=== PATIENT | female | born 1980 | race Caucasian/White ===

== ENCOUNTER 2016-07-25 17:01 | Emergency (ER) | payer MEDICAID, OTHER ==
[~2016-07-25] VITALS: Ht 152.4 cm; Wt 65.0 kg
[2016-07-25 17:11] VITALS: Ht 152.4 cm; Wt 65.0 kg
--- NOTE | 2016-07-25 19:12 | ERD ---
ER Documentation Chief Complaint Date/Time DATE: 07/25/16 TIME: 19:10 Chief Complaint 9 WEEKS , VAGINAL BLEEDING, SENT BY PCP FOR US HPI 35 year old female here with who is A2 who is approximately 9 weeks with a last normal menstrual period sometime in May presents to the ED for mild vaginal bleeding 2 days. She states that she went to her OB doctor at the [facility] who sent her here for ultrasound. She states that she had bleeding that started yesterday however the bleeding has improved today. She denies pelvic pain. She denies fever or chills. Denies vomiting or diarrhea or abdominal pain. No other complaints. Denies leg pain or leg swelling. Denies chest pain or cough or shortness of breath difficulty breathing. Denies headache or dizziness. ROS All systems reviewed and are negative except as per history of present illness. Allergies Allergies: Coded Allergies: No Known Allergy (Verified , 07/25/16) PMhx/Soc Medical and Surgical Hx: pt denies Medical Hx History of Surgery: Yes (C SECTION 2X) Anesthesia Reaction: No Hx Neurological Disorder: No Hx Respiratory Disorders: No Hx Cardiac Disorders: No Hx Psychiatric Problems: No Hx Miscellaneous Medical Probl: No Hx Alcohol Use: No Hx Substance Use: No Hx Tobacco Use: No Smoking Status: Never smoker FmHx Family History: No coronary disease, No diabetes, No other Physical Exam Vitals Vital Signs Date Time Temp Pulse Resp B/P Pulse Ox O2 Delivery O2 Flow Rate FiO2 07/25/16 17:11 99.1 87 16 136/78 98 Physical Exam GENERAL: Well-developed, well-nourished female. Appears in no acute distress. HEAD: Normocephalic, atraumatic. EYES: Pupils are equally reactive bilaterally. EOMs grossly intact. No conjunctival erythema. ENT: Moist mucous membranes. No uvula deviation. No kissing tonsils. No exudates. NECK: Supple. No lymphadenopathy or thyromegaly. No meningismus. negative kernig. negative brudinski. LUNG: Clear to auscultation bilaterally. No rhonchi, wheezing, rales or coarse breath sounds. HEART: Regular rate and rhythm. No murmurs, rubs or gallops. Extremities: Equal pulses bilaterally. No peripheral clubbing, cyanosis or edema. No unilateral leg swelling. NEUROLOGIC: Alert and oriented. Moving all four extremities. 5/5 strength in all extremities. Normal speech. Steady gait. SKIN: Normal color. Warm and dry. No rashes or lesions. Capillary refill < 2 seconds Result Diagram: 07/25/161919 Results 24 hrs Laboratory Tests Test 07/25/16 18:47 07/25/16 19:20 Urine Color SLIGHTLY PINK Urine Clarity HAZY Urine pH 5.0 Urine Specific [place] 1.010 Urine Ketones 1+ Urine Nitrite NEGATIVE Urine Bilirubin NEGATIVE Urine Urobilinogen 0.2 E.U./dL Urine Leukocyte Esterase NEGATIVE Urine Microscopic RBC 2-5/HPF Urine Microscopic WBC 5-10/HPF Urine Squamous Epithelial Cells MANY Urine Bacteria FEW Urine Hemoglobin 3+ Urine Glucose NEGATIVE% Urine Total Protein TRACE White Blood Count 9.310^3/ul Red Blood Count 4.7610^6/ul Hemoglobin 14.2g/dl Hematocrit 40.7% Mean Corpuscular Volume 85.5fl Mean Corpuscular Hemoglobin 29.8pg Mean Corpuscular Hemoglobin Concent 34.9g/dl Red Cell Distribution Width 12.1% Platelet Count 44412^3/UL Mean Platelet Volume 9.5fl Neutrophils % 67.5% Lymphocytes % 25.8% Monocytes % 4.4% Eosinophils % 1.7% Basophils % 0.2% Nucleated Red Blood Cells % 0.0/100WBC Neutrophils # 6.310^3/ul Lymphocytes # 2.410^3/ul Monocytes # 0.410^3/ul Eosinophils # 0.210^3/ul Basophils # 0.010^3/ul Nucleated Red Blood Cells # 0.010^3/ul Beta HCG, Quantitative 45284.0mIU/ml Procedures/MDM ER COURSE: I kept the patient and/or family informed of laboratory and diagnostic imaging results throughout the emergency room course. IMAGING STUDIES [place] [address] Radiology Main Line: [phone] DIAGNOSTIC IMAGING REPORT Patient: JARAD ELLSWORTH : 1980 Age: 35 Sex: F MR #: [id number] DOS: 07/25/16 1847 Ordering MD: ARNAUD SWEENEY PA-C Location: FTE Room/Bed: PROCEDURE: OBSTETRICAL ULTRASOUND WITH ENDOVAGINAL IMAGES CLINICAL INDICATION: Vaginal Bleed () TECHNIQUE: Multiple sonographic images of the pelvis were obtained utilizing a transabdominal and endovaginal technique. The images were reviewed on a PACS workstation. COMPARISON: None. LMP: 05/24/2016 Gestational age by LMP: 8 weeks, 6 days FINDINGS: The uterus measures 10.5 x 4.6 x 6.0 cm. A possible intrauterine gestational sac is identified with mean sac diameter of 2.15 cm which would be consistent with a gestational age of 6 weeks, 6 days and an estimated date of delivery of 03/14/2017 . No yolk sac or pole is identified within it. The right ovary measures 2.8 x 2.1 x 2.8 cm. The left ovary measures 2.1 x 1.3 x 2.0 cm. There is normal vascular flow in both ovaries. No significant ovarian lesions are seen. No significant pelvic free fluid is identified. IMPRESSION: A possible intrauterine gestational sac is identified which would be consistent with a gestational age of 6 weeks, 6 days . No yolk sac or pole is identified within it. Findings may be due to an early intrauterine although an ectopic is not excluded. Short-term follow-up ultrasound and serial Beta HCG measurements are recommended for further evaluation. RPTAT: EE Physician Mignon Date Time Electronically viewed and signed by Physician Mignon on 07/25/2016 19:19 RA/ CC: ARNAUD SWEENEY PA-C LABORATORY STUDIES CBC within normal limits with no signs of anemia. Urinalysis is negative for nitrites, leukocytes or hematuria. RH O+ BH: 04551.00 MEDICAL DECISION MAKING: This is a 35 year old female who is who presents with vaginal bleeding. Vital signs were reviewed. Patient is afebrile. Patient is not hypoxic. Patient is nontoxic or ill-appearing. Her ultrasound revealed a possible intrauterine gestational sac is identified which would be consistent with a gestational age of 6 weeks, 6 days . No yolk sac or pole is identified within it. Findings may be due to an early intrauterine although an ectopic is not excluded. Short-term follow-up ultrasound and serial Beta HCG measurements are recommended for further evaluation. I consulted with the labor is business applications manager,Dr Almanzar where I reviewed her imaging studies and laboratory studies. Patient is stable for outpatient therapy and must return in 48 hours for recheck of beta hCG and ultrasound. Low suspicion for ectopic , , molar , endometriosis, PID, cervicitis, septic , molar , HELLP syndrome, preeclampsia, eclampsia, placenta previa, placenta abruptia. DISCHARGE: At this time, patient is stable for discharge and outpatient management with no new complaints during the ER course. Patient was sent home with copy of imaging and laboratory studies and to return in 2 days for recheck. Advised patient to not be alone at home and to have close follow-up. Patient will be discharged home with instructions to recheck for new or worsening symptoms such as fever, nausea, weakness, LOC and to follow up with primary care in the next 1-2 days. Patient was advised to return to the ER for any new or worsening symptoms. Plan was discussed and patient and/or family understands and agrees. Home instructions were given. Departure Diagnosis: Primary Impression: Vaginal bleeding in patient at less than 20 weeks gestation Condition: Stable ARNAUD SWEENEY PA-C Jul 25, 2016 19:12
--- NOTE | 2016-07-25 19:19 | RADRPT ---
PROCEDURE: OBSTETRICAL ULTRASOUND WITH ENDOVAGINAL IMAGES CLINICAL INDICATION: Vaginal Bleed () TECHNIQUE: Multiple sonographic images of the pelvis were obtained utilizing a transabdominal and endovaginal technique. The images were reviewed on a PACS workstation. COMPARISON: None. LMP: 05/24/2016 Gestational age by LMP: 8 weeks, 6 days FINDINGS: The uterus measures 10.5 x 4.6 x 6.0 cm. A possible intrauterine gestational sac is identified with mean sac diameter of 2.15 cm which would be consistent with a gestational age of 6 weeks, 6 days and an estimated date of delivery of 018 . No yolk sac or pole is identified within it. The right ovary measures 2.8 x 2.1 x 2.8 cm. The left ovary measures 2.1 x 1.3 x 2.0 cm. There is no rmal vascular flow in both ovaries. No significant ovarian lesions are seen. No significant pelvic free fluid is identified. IMPRESSION: A possible intrauterine gestational sac is identified which would be consistent with a gestational a ge of 6 weeks, 6 days . No yolk sac or pole is identified within it. Findings may be due to a n early intrauterine although an ectopic is not excluded. Short-term follow-up ultrasound and serial Beta HCG measurements are recommended for further evaluation. RPTAT: EE Physician Mignon Date Time Electronically viewed and signed by Physician Mignon on 07/25/2016 19:19 /
[2016-07-25 19:28] LABS: ADD SCAN DIFF NO
[2016-07-25 19:30] LABS: BASOPHILS % 0.2 % (0.0-2.0); EOSINOPHILS # 0.2 10^3/ul (0.0-0.5); EOSINOPHILS % 1.7 % (0.0-7.0); HEMATOCRIT 40.7 % (37.0-47.0); HEMOGLOBIN 14.2 g/dl (12.0-16.0); LYMPHOCYTES # 2.4 10^3/ul (0.8-2.9); LYMPHOCYTES % 25.8 % (15.0-51.0); MEAN CORPUSCULAR HEMOGLOBIN 29.8 pg (29.0-33.0); MEAN CORPUSCULAR HGB CONC 34.9 g/dl (32.0-37.0); MEAN CORPUSCULAR VOLUME 85.5 fl (82.0-101.0); MEAN PLATELET VOLUME 9.5 fl (7.4-10.4); MONOCYTE # 0.4 10^3/ul (0.3-0.9); MONOCYTES % 4.4 % (0.0-11.0); NEUTROPHIL # 6.3 10^3/ul (1.6-7.5); NEUTROPHILS % 67.5 % (39.0-77.0); PLATELET COUNT 229 10^3/UL (140-415); RED BLOOD COUNT 4.76 10^6/ul (4.20-5.40); RED CELL DISTRIBUTION WIDTH 12.1 % (11.5-14.5); WHITE BLOOD COUNT 9.3 10^3/ul (4.8-10.8)
[2016-07-25 20:19] LABS: UR CLARITY HAZY (CLEAR); UR COLOR SLIGHTLY PINK (YELLOW)
[2016-07-25 20:20] LABS: ADD UMIC YES; UR BILIRUBIN (Dip) NEGATIVE (NEGATIVE); UR BLOOD (Dip) 3+ (NEGATIVE); UR GLUCOSE (Dip) NEGATIVE (NEGATIVE); UR KETONES (Dip) 1+ (NEGATIVE); UR LEUKOCYTE ESTERASE (Dip) NEGATIVE (NEGATIVE); UR NITRITE (Dip) NEGATIVE (NEGATIVE); UR TOTAL PROTEIN (Dip) TRACE (NEGATIVE); UR UROBILINOGEN (Dip) 0.2 E.U./dL (0.1-1.0)
[2016-07-25 20:23] LABS: UR BACTERIA FEW; UR SQUAMOUS EPITHELIAL CELL MANY
[2016-07-25 21:05] VITALS: BP 118/70; PULSE 84; RESP 20
== END 2016-07-25 21:05 | disposition home or self-care (01) ==
LOC: FTE 17:01
DX: O20.9 Hemorrhage in early pregnancy, unspecified (principal); Z3A.01 Less than 8 weeks gestation of pregnancy
CPT/HCPCS: 36415; 76801; 81001; 84702; 85025; 86900; 86901; Z7502

== ENCOUNTER 2016-07-26 03:06 | Day surgery (SDC) | payer MEDICAID ==
[2016-07-26] VITALS (11 sets, daily range): BP systolic 105–130; BP diastolic 51–69; PULSE 106–120; RESP 16–26; TEMP 98.2; Ht 152.4 cm; Wt 64.5 kg
[~2016-07-26] VITALS: Ht 152.4 cm; Wt 64.5 kg
[2016-07-26] MEDS ORDERED: ONDANSETRON 4 MG INJ IV STA (03:34)
[2016-07-26] MEDS ORDERED: morphine 4 MG/ML VIAL IV STA (03:34)
[2016-07-26] MEDS ORDERED: SOD CHLORIDE 0.9% 1,000 ML IV STA (03:34)
[2016-07-26 03:57] LABS: ADD SCAN DIFF NO
[2016-07-26 04:05] LABS: BASOPHILS % 0.3 % (0.0-2.0); EOSINOPHILS # 0.2 10^3/ul (0.0-0.5); HEMATOCRIT 39.8 % (37.0-47.0); HEMOGLOBIN 13.9 g/dl (12.0-16.0); LYMPHOCYTES # 2.9 10^3/ul (0.8-2.9); LYMPHOCYTES % 28.3 % (15.0-51.0); MEAN CORPUSCULAR HEMOGLOBIN 29.6 pg (29.0-33.0); MEAN CORPUSCULAR HGB CONC 34.9 g/dl (32.0-37.0); MEAN CORPUSCULAR VOLUME 84.7 fl (82.0-101.0); MEAN PLATELET VOLUME 9.7 fl (7.4-10.4); MONOCYTE # 0.6 10^3/ul (0.3-0.9); MONOCYTES % 5.4 % (0.0-11.0); NEUTROPHIL # 6.6 10^3/ul (1.6-7.5); NEUTROPHILS % 63.8 % (39.0-77.0); PLATELET COUNT 225 10^3/UL (140-415); WHITE BLOOD COUNT 10.3 10^3/ul (4.8-10.8)
--- NOTE | 2016-07-26 04:22 | ERD ---
ER Documentation Chief Complaint Date/Time DATE: 07/26/16 TIME: 04:18 Chief Complaint pelvic pain, vaginal bleeding,difficulty urinating 8 wks HPI 35-year-old female presents to emergency department for complaints of worsening pelvic pain and vaginal bleeding, patient was seen earlier today for the same problem, had a full workup done, is supposed to be 8 weeks , was told to be six-week in the ultrasound. Patient is complaining of pelvic pain that was much worse, 9/10 scale, is worse upon movement accompanied with cramping. Patient also has worsening vaginal bleeding. Plan ROS All systems reviewed and are negative except as per history of present illness. Medications Home Meds Reported Medications [none] Unknown Strength No Conflict Check 07/26/16 Allergies Allergies: Coded Allergies: No Known Allergy (Verified , 07/25/16) PMhx/Soc History of Surgery: Yes (C SECTION 2X) Anesthesia Reaction: No Hx Neurological Disorder: No Hx Respiratory Disorders: No Hx Cardiac Disorders: No Hx Psychiatric Problems: No Hx Miscellaneous Medical Probl: No Hx Alcohol Use: No Hx Substance Use: No Hx Tobacco Use: No Smoking Status: Never smoker FmHx Family History: No coronary disease, No diabetes, No other Physical Exam Vitals Vital Signs Date Time Temp Pulse Resp B/P Pulse Ox O2 Delivery O2 Flow Rate FiO2 07/26/16 06:33 98.2 106 18 123/70 98 Room Air 07/26/16 03:15 98.3 94 20 130/70 100 Physical Exam GENERAL: The patient is well developed and appropriate for usual state of health, in no apparent distress. CHEST: Clear to auscultation bilaterally. There are no rales, wheezes or rhonchi. HEART: Regular rate and rhythm. No murmurs, clicks, rubs or gallops. No S3 or S4. ABDOMEN: Soft, lower abdominal tenderness noted. Good bowel sounds. No rebound or guarding. No gross peritonitis. No gross organomegaly or masses. No Livingston sign or McBurney point tenderness. BACK: No midline or flank tenderness. EXTREMITIES: Equal pulses bilaterally. There is no peripheral clubbing, cyanosis or edema. No focal swelling or erythema. Full range of motion. Grossly neurovascularly intact. NEURO: Alert and oriented. Cranial nerves 2-12 intact. Motor strength in all 4 extremities with 5/5 strength. Sensation grossly intact. Normal speech and gait. SKIN: There is no apparent rash or petechia. The skin is warm and dry. HEMATOLOGIC AND LYMPHATIC: There is no evidence of excessive bruising or lymphedema. No gross cervical, axillary, or inguinal lymphadenopathy. Result Diagram: 07/26/16 0614 Results 24 hrs Laboratory Tests Test 07/26/16 03:50 07/26/16 06:14 White Blood Count 10.310^3/ul 15.010^3/ul Red Blood Count 4.7010^6/ul 4.1610^6/ul Hemoglobin 13.9g/dl 12.4g/dl Hematocrit 39.8% 35.9% Mean Corpuscular Volume 84.7fl 86.3fl Mean Corpuscular Hemoglobin 29.6pg 29.8pg Mean Corpuscular Hemoglobin Concent 34.9g/dl 34.5g/dl Red Cell Distribution Width 12.0% 12.4% Platelet Count 02483^3/UL 49581^3/UL Mean Platelet Volume 9.7fl 9.4fl Neutrophils % 63.8% 87.7% Lymphocytes % 28.3% 8.1% Monocytes % 5.4% 3.5% Eosinophils % 2.0% 0.1% Basophils % 0.3% 0.1% Nucleated Red Blood Cells % 0.0/100WBC 0.0/100WBC Neutrophils # 6.610^3/ul 13.210^3/ul Lymphocytes # 2.910^3/ul 1.210^3/ul Monocytes # 0.610^3/ul 0.510^3/ul Eosinophils # 0.210^3/ul 0.010^3/ul Basophils # 0.010^3/ul 0.010^3/ul Nucleated Red Blood Cells # 0.010^3/ul 0.010^3/ul Beta HCG, Quantitative 9550.0mIU/ml Current Medications Medications (Trade) Dose Ordered Sig/Patrick Route PRN Reason Start Time Stop Time Status Last Admin Dose Admin Sodium Chloride (NS) 1,000 ml @ 1,000 mls/hr Q1H STAT IV 07/26/16 03:34 07/26/16 04:33 DC 07/26/16 03:50 Ondansetron HCl (Zofran Inj) 4 mg ONCE STAT IV 07/26/16 03:34 07/26/16 03:36 DC 07/26/16 03:50 Morphine Sulfate 4 mg 4 mg ONCE STAT IV 07/26/16 03:34 07/26/16 03:36 DC 07/26/16 03:50 Lactated Ringer's 1,000 ml @ 25 mls/hr Q24H IV 07/26/16 05:56 07/26/16 15:26 DC 07/26/16 06:39 Cefazolin Sodium/ Dextrose (Ancef 2 Gm/50 ml (Pmx)) 50 ml @ 100 mls/hr PRE-OP ONCE IVPB 07/26/16 06:00 07/26/16 06:29 DC 07/26/16 06:39 Hydromorphone HCl (Dilaudid) 1 mg ONCE STAT IV 07/26/16 06:35 07/26/16 06:36 DC 07/26/16 06:38 Patient was given medication for pain here in emergency department, after treatment, patient verbalized feeling much better. Patient's pain is improved. Morphine was given here in emergency department, patient was advised about risks if ever she is about the morphine, patient still wants the medication.Patient was given Zofran here in the emergency department. After treatment, patient was able to tolerate po fluids here in the emergency department without any vomiting. There is no signs and symptoms of dehydration. Normal saline IV bolus was given here in emergency department for rehydration, patient tolerated IV fluids. PROCEDURE: Obstetrical ultrasound. CLINICAL INDICATION: Vaginal bleeding. TECHNIQUE: Multiple sonographic images of the pelvis were obtained with transabdominal and endovaginal technique. Images were obtained with wisdom scale and color Doppler. COMPARISON: 07/25/2016. FINDINGS: The endometrium is thickened and heterogeneous measuring 2.1 cm. There is an intrauterine gestational sac with no pole or yolk sac identified. The mean sac diameter averages 2.14 cm, compatible with 6 weeks and 6 days gestation. No subchorionic collection is identified. There is no pelvic free fluid. The right ovary measures 2.7 x 1.6 x 2.0 cm and demonstrates normal flow. The left ovary is not visualized. There is no suspicious adnexal mass identified. IMPRESSION: Intrauterine gestational sac with no pole or yolk sac identified, compatible with 6 weeks and 6 days. Short-term follow-up ultrasound is recommended. Thickened and heterogeneous endometrium. Left ovary not visualized. .Marlo Ivan MD, MD Date Time Electronically viewed and signed by .Marlo Ivan MD, MD on 07/26/2016 05:12 .T/ CC: KRYSTINA DHALIWAL NP Procedures/MDM Medical Decision Making: Patients vaginal bleeding is most likely consistent of possible incomplete . Patient does not show any evidence of hypovolemic shock. Patients hemoglobin and hematocrit is stable. There is low suspicion for ectopic . GEOVANNY results show incomplete , a failed noted in the uterus BetaHCG Quantitative is consistent miscarriage The patient is Rh+, does not need RhoGAM this time. There is no signs of symptoms of dehydration. There is low suspicion for sepsis. Patient appears well and is hemodynamically stable. Ob Laborist Dr Polanco evaluated patient, will admit patient for possible dilatation and curettage. Stable at this time. Departure Diagnosis: Primary Impression: Pelvic pain complicating Additional Impression: Incomplete Condition: Fair KRYSTINA DHALIWAL NP Jul 26, 2016 04:22
[2016-07-26] MEDS ORDERED: LACTATED RINGER'S 1,000 ML IV SCH (05:56)
[2016-07-26] MEDS ORDERED: CEFAZOLIN 2 GM/50 ML (PMX) 50 ML IVPB ONE (06:00)
[2016-07-26 06:18] LABS: ADD SCAN DIFF NO
[2016-07-26 06:22] LABS: BASOPHILS % 0.1 % (0.0-2.0); EOSINOPHILS % 0.1 % (0.0-7.0); HEMATOCRIT 35.9 % (37.0-47.0); HEMOGLOBIN 12.4 g/dl (12.0-16.0); LYMPHOCYTES # 1.2 10^3/ul (0.8-2.9); LYMPHOCYTES % 8.1 % (15.0-51.0); MEAN CORPUSCULAR HEMOGLOBIN 29.8 pg (29.0-33.0); MEAN CORPUSCULAR HGB CONC 34.5 g/dl (32.0-37.0); MEAN CORPUSCULAR VOLUME 86.3 fl (82.0-101.0); MEAN PLATELET VOLUME 9.4 fl (7.4-10.4); MONOCYTE # 0.5 10^3/ul (0.3-0.9); MONOCYTES % 3.5 % (0.0-11.0); NEUTROPHIL # 13.2 10^3/ul (1.6-7.5); NEUTROPHILS % 87.7 % (39.0-77.0); PLATELET COUNT 176 10^3/UL (140-415); RED BLOOD COUNT 4.16 10^6/ul (4.20-5.40); RED CELL DISTRIBUTION WIDTH 12.4 % (11.5-14.5)
[2016-07-26] MEDS ORDERED: HYDROmorphONE 1 MG/ML SYG IV STA (06:35)
[2016-07-26] MEDS ORDERED: EPHEDrine SULFATE 50 MG/5 ML SYG ONE (07:00)
--- NOTE | 2016-07-26 07:16 | PREOPHP ---
DATE OF ADMISSION: 07/26/2016 CHIEF COMPLAINT: Severe pelvic pain with vaginal bleeding. HISTORY OF PRESENT ILLNESS: Yojana Larsen is a 35-year-old 3, para 2-0-0- 2, with LMP of 05/24/2016, complaining of severe pelvic pain and vaginal bleeding with clot passing. Evaluation in ER: LABORATORY: White BC 10.3, hemoglobin 13.9, hematocrit 39.8, platelets 225. Beta hCG a few hours ago was 11,000, currently is 9550. IMAGING: A transvaginal ultrasound revealed the uterus measured 10.5 x 4.6 x 6 cm. A possible intrauterine gestational sac is identified with mean sac diameter of 2.15 cm which could be consistent with the gestational age of 6 weeks and 6 days. No yolk sac or pole is identified. Both ovaries are normal. GYNECOLOGIC HISTORY: Menarche at age 12. She had regular menstrual cycle with interval of 28 to 30 and duration of 5 to 7 days. She denies history of sexually transmitted infection, genital herpes, PID, or abnormal Pap smear. She is sexually active with male. OBSTETRIC HISTORY: G3, P2-0-0-2, with 2 previous deliveries. PAST MEDICAL HISTORY: None. PAST SURGICAL HISTORY: delivery x2. FAMILY HISTORY: Negative. She denies breast, uterine, ovarian, or colon cancer in her family. SOCIAL HISTORY: She is single, living with her partner who is the father of all of her children. She denies tobacco, alcohol, or drug use. ALLERGIES: NO KNOWN DRUG ALLERGIES. MEDICATIONS: None. PHYSICAL EXAMINATION: VITAL SIGNS: Blood pressure 110/62, pulse rate 80 per minute, respiratory rate 18 per minute, temperature 98.2. GENERAL: She crying and shouting because of severe pelvic pain. HEART: Regular rhythm and rate. No murmur. LUNGS: Clear to auscultation bilateral. ABDOMEN: Soft, nontender, no organomegaly. FLANKS: No CVA tenderness bilateral. EXTREMITIES: No edema, varicose veins, thigh or calf tenderness bilateral. PELVIC: External genitalia: There are blood with clot all over external genitalia. Vagina with clot and blood which removed with ring forceps. Cervix: Some tissue is expelling from the cervix. Uterus top normal, mobile, nontender. Adnexa: No palpable mass bilateral. ASSESSMENT AND PLAN: A 35-year-old 3, para 2-0-0-2 with possible blighted ovum and incomplete . The patient has an excruciating pelvic pain which required 2 doses of morphine 4 mg IV. She has extremely heavy vaginal bleeding with clot passing. Blood type and screen performed. She will transfer to operating room for suction curettage. The risk of surgery including , but not limited to, bleeding, infection, injury to other organs (bowel, bladder, ureter, vessels, nerves), if uterine rupture happens, blood transfusion , blood transfusion related infection, removal of uterus or any other indicated surgery discussed with patient in detail. She expressed understanding and would like to proceed with dilation and suction curettage. Dictated By: MUSHTAQ VILA/ROLANDO Conf#: [id number] DID#: [id number] EDWIN
--- NOTE | 2016-07-26 07:41 | RADRPT ---
PROCEDURE: Obstetrical ultrasound. CLINICAL INDICATION: Vaginal bleeding. TECHNIQUE: Multiple sonographic images of the pelvis were obtained with transabdominal and endova ginal technique. Images were obtained with wisdom scale and color Doppler. COMPARISON: 07/25/2016. FINDINGS: The endometrium is thickened and heterogeneous measuring 2.1 cm. There is an intrauterine gestation al sac with no pole or yolk sac identified. The mean sac diameter averages 2.14 cm, compatibl e with 6 weeks and 6 days gestation. No subchorionic collection is identified. There is no pelvic free fluid. The right ovary measures 2.7 x 1.6 x 2.0 cm and demonstrates normal flow. The left ovary is not visualized. There is no suspicious adnexal mass identified. IMPRESSION: Intrauterine gestational sac with no pole or yolk sac identified, compatible with 6 weeks and 6 days. Short-term follow-up ultrasound is recommended. Thickened and heterogeneous endometrium. Left ovary not visualized. .Marlo Ivan MD, Date Time Electronically viewed and signed by .Marlo Ivan MD, MD on 07/26/2016 05:12 .T/
[2016-07-26] MEDS ORDERED: ONDANSETRON 4 MG INJ IV PRN (08:00)
[2016-07-26] MEDS ORDERED: FENTAnyl 50 MCG/ML VIAL IV PRN (08:00)
[2016-07-26] MEDS ORDERED: PROCHLORPERAZINE 10 MG INJ IV PRN (08:00)
[2016-07-26] MEDS ORDERED: HYDROmorphONE (0.2 MG/ML) 10ML SYG IV PRN ×3 (08:00)
[2016-07-26] MEDS ORDERED: DIPHENHYDRAMINE 50 MG INJ IV PRN (08:00)
[2016-07-26] MEDS ORDERED: MEPERIDINE 25 MG INJ IV PRN (08:00)
[2016-07-26] MEDS ORDERED: PROPOFOL 20 ML ONE (08:03)
[2016-07-26] MEDS ORDERED: LIDOCAINE 2% (SDV) 5 ML INJ ONE (08:03)
[2016-07-26] MEDS ORDERED: MIDAZOLAM 1 MG/ML 2 ML INJ ONE (08:04)
[2016-07-26] MEDS ORDERED: FENTAnyl 50 MCG/ML VIAL ONE (08:16)
[2016-07-26] MEDS ORDERED: ONDANSETRON 4 MG INJ ONE (08:18)
[2016-07-26] MEDS ORDERED: DEXAMETHASONE 4 MG/ML 1 ML INJ ONE (08:18)
[2016-07-26] MEDS ORDERED: METOCLOPRAMIDE 10 MG INJ ONE (08:18)
[2016-07-26] MEDS ORDERED: METHYLERGONOVINE 0.2 MG INJ IM SCH (08:30)
[2016-07-26] MEDS ORDERED: OXYTOCIN 10 UNIT INJ ONE (08:32)
--- NOTE | 2016-07-28 20:43 | OPR ---
DATE OF OPERATION: 07/26/2016 PREOPERATIVE DIAGNOSIS: A 35-year-old 4, para 3-0-0-3 with incomplete . POSTOPERATIVE DIAGNOSIS: A 35-year-old 4, para 3-0-0-3 with incomplete . OPERATION PERFORMED: Dilation and Suction curettage. SURGEON: Brendan Almanzar MD ACTIVE DIRECTORY SYSTEMS ADMINISTRATOR: None. ANESTHESIA: General endotracheal anesthesia. ESTIMATED BLOOD LOSS: 100 mL INTRAVENOUS FLUIDS: 1200 mL SPECIMENS: Products of conception. COMPLICATIONS: None. FINDINGS: Exam under anesthesia, external genitalia and vagina normal. Cervix multiparous, some products of conception expelling from the cervix. Uterus 10- week size, mobile, anteverted. Adnexa: No palpable mass bilaterally. INDICATION AND HISTORY: Yojana Larsen a 35-year-old 4, para 3-0-0-3 with incomplete . Treatment options including medical treatment with Cytotec and suction curettage discussed in detail with the patient and her . Both expressed understanding. All of their questions were answered. She would like to have suction curettage. Risk of surgery including but not limited to bleeding, infection, uterine perforation, injury to other organs ( bowel, bladder, ureter, vessels and nerves) if uterine perforation occurs, blood transfusion, blood transfusion-related infection, scar formation, risk of anesthesia. Indicated surgery discussed. She expressed understanding. All of her questions answered. She signed the informed consent. PROCEDURE IN DETAIL: The patient was identified and the procedure verified. She was given general anesthesia without difficulty and placed in a modified lithotomy position. The patient was examined under general anesthesia with the above findings. The patient was then prepped and draped in the normal sterile fashion. The bladder was drained by insertion of a straight catheter. Then a weighted speculum was used to visualize the cervix, which was grasped on the anterior lip with a single-tooth tenaculum. Some products of conception which were expelling from cervical os were grasped with ring forceps and removed. The uterus was sounded to 10 cm. The Hegar dilator was used to dilate the cervix more to #12. Then a #11 suction curettage was introduced into uterine cavity. Suction curettage was performed in 360-degree fashion until no further tissue was obtained. There was approximately 100 mL of bleeding. Then a sharp curettage was gently introduced into the uterine cavity, and curettage was performed. Again, suction curettage was introduced to remove the remaining clot and debris. No further tissue was obtained. There was about 150 grams tissue which was sent to Pathology. Tenaculum removed. There was no bleeding from the tenaculum site. The speculum was removed. The patient tolerated procedure well. She was extubated in the operating room and transferred to the recovery room in stable condition. Dictated By: BRENDAN VILA/ROLANDO Conf#: [id number] DID#: [id number] EDWIN
== END 2016-07-26 11:35 | disposition home or self-care (01) ==
LOC: FTE 03:06 → SDS 07:09
PROVIDERS: ATTEND Obstetrics & Gynecology
DX: O03.4 Incomplete spontaneous abortion without complication (principal)
CPT/HCPCS: 59812; 76817; 84702; 85025; 86850; 86900; 86901; 88305; J0690; J1100; J1170; J2210; J2250; J2270; J2405; J2765; J3010; J7030; J7120; Z7512; Z7610; J2590